=== PATIENT | male | born 1945 | race Caucasian/White ===

== ENCOUNTER 2019-07-16 10:51 | Emergency (ER) | payer MEDICARE, SELFPAY ==
--- NOTE | ~2019-07-16 | XR_ITS ---
EXAMINATION: XR chest 2V EXAM DATE: 07/16/2019 11:48 INDICATION: Cough and fever. TECHNIQUE: Frontal and lateral projections of the chest obtained and reviewed. Comparison is made to prior examination from 07/11/2007. FINDINGS: Small amount of right perihilar patchy airspace disease likely developing pneumonia. Left lung is clear. No pneumothorax or pleural effusion. Cardiomediastinal silhouette is normal. There are no osseous abnormalities identified. IMPRESSION: Developing right perihilar pneumonia. Reviewed, dictated and finalized at location B. CY CHECKER
--- NOTE | 2019-07-16 11:13 | ED.URI ---
HPI - URI/Sore Throat General Chief Complaint: Upper Respiratory Infection Stated Complaint: body aches Time Seen by Provider: 07/16/19 11:32 Source: patient and RN notes reviewed Mode of arrival: ambulatory Limitations: no limitations History of Present Illness HPI Narrative: 74 old male presents with concern for fever, body aches. Reports he woke up early this morning with the symptoms. Denies any intervention for the symptoms. Reports similar symptoms 2 years ago when he was diagnosed with pneumonia. MD elicited complaint: fever Pertinent past history: pneumonia Related Data Home Medications Medication Instructions Recorded Confirmed Centrum Silver Ultra Men's 07/16/19 aspirin [Adult Low Dose Aspirin] 81 mg PO DAILY 07/16/19 07/16/19 finasteride 5 mg PO DAILY 07/16/19 07/16/19 [id number] cap PO 07/16/19 [Krill Oil (Vulcan 3 and 6)] lisinopril 40 mg PO DAILY 07/16/19 07/16/19 lovastatin 07/16/19 metformin 1,000 mg PO DAILY 07/16/19 07/16/19 metoprolol succinate 100 mg PO DAILY 07/16/19 07/16/19 Allergies Allergy/AdvReac Type Severity Reaction Status Date / Time chlorpheniramine Allergy Unknown HALLUCINATE Verified 08/31/16 05:15 D phenylephrine Allergy Unknown HALLUCINATE Verified 08/31/16 05:15 D Review of Systems Review of Systems: Narrative: CONSTITUTIONAL: Reports malaise, chills, sweats, fever. EYES: Denies visual changes, redness, or discharge. ENT: Denies rhinorrhea, congestion, sinus pain, otalgia and sore throat. CARDIOVASCULAR: Denies chest pain, palpitations, or edema. RESPIRATORY: Denies cough or dyspnea. GASTROINTESTINAL: Denies abdominal pain, nausea, vomiting, diarrhea SKIN: Denies rash or itching. MUSCULOSKELETAL: Reports myalgia. NEUROLOGIC: Denies headache. All systems reviewed & are unremarkable except as noted in HPI and below PMFSH Family History Family History (Updated 07/18/17 @ 15:57 by DOCTOR UNKNOWN) Father Diabetes mellitus Hypertension Patient's father is Family history of cardiovascular disease Mother Hypertension Patient's mother is , Onset Age: 76 Family history of cardiovascular disease Grandparent Hypertension Social History Social History Alcohol intake: never Comments At time of signature, agree with nursing past medical, surgical, social and family history. There is no relevant family history pertinent to the presenting complaint Exam Narrative: Exam Narrative: GENERAL: Well-appearing, well-nourished, and in no acute distress. HEAD: Normocephalic EYES: PERRLA, conjunctivae clear ENT: Nares clear, turbinates erythematous, no discharge. Mucous membranes moist. TM pearly pino with dull light reflex bilaterally; no tragal tenderness. Oropharynx not erythematous without lesions. Tonsils not enlarged and without exudate, no drooling, no hoarseness, no trismus. NECK: Supple. CHEST: Clear to auscultation, breath diminished in the right lung. No wheezing, rhonchi, rales, or stridor. No respiratory distress, speaks in full sentences. HEART: Regular rate and rhythm. SKIN: Warm, dry, no rash. NEURO: Alert and oriented x3. PSYCH: Normal mood and affect Course Course Emergency Course: Patient is aware of diagnosis, understands and agrees to treatment plan. Anticipatory guidance given. Patient agrees to follow-up as directed and is aware of reasons to seek care at the emergency department. Portions of this record may have been created with voice recognition software Vital Signs Vital signs: Reviewed. Patient has current diagnosis of hypertension. MDM - URI/Sore Throat MDM Narrative Medical decision making narrative: Differential diagnosis considered: Strep pharyngitis, allergic rhinitis, upper respiratory tract infection, sinusitis, rhinosinusitis, nasopharyngitis. viral pharyngitis, otitis media, otitis externa, pneumonia, bronchitis, viral cough syndrome, viral syndrome, and influenza. Exam findings sh
[2019-07-16 11:20] VITALS: BP 175/71; PULSE 99; RESP 20; TEMP 38.4; O2SAT 100
== END 2019-07-16 12:07 | disposition home or self-care (01) ==
PROVIDERS: Emergency Provider Nurse Practitioner; PCP Family Medicine
DX: R50.9 Fever, unspecified (principal); R52 Pain, unspecified; J18.9 Pneumonia, unspecified organism; E78.00 Pure hypercholesterolemia, unspecified; I10 Essential (primary) hypertension; N40.0 Benign prostatic hyperplasia without lower urinary tract symptoms; E11.9 Type 2 diabetes mellitus without complications
CPT/HCPCS: 71046; 87804; 99213; G0463

== ENCOUNTER 2020-05-03 16:17 | Emergency (ER) | payer MEDICARE, SELFPAY ==
--- NOTE | ~2020-05-03 | XR_ITS ---
EXAMINATION: XR chest 2V 05/03/2020 16:32 INDICATION: Cough and fever PROCEDURE: 2 view chest COMPARISON: 07/16/2019 FINDINGS: The lungs are clear. The cardiomediastinal silhouette is within normal limits. There are no pleural effusions. There is no pneumothorax suspected. IMPRESSION: 1: NO ACUTE CARDIOPULMONARY DISEASE. Reviewed, dictated and finalized at location B. UP GUIDER OPERATOR
[2020-05-03 16:24] VITALS: BP 172/86; PULSE 98; RESP 18; TEMP 37.8; O2SAT 97
--- NOTE | 2020-05-03 16:38 | ED.URI ---
HPI - URI/Sore Throat General Chief Complaint: Upper Respiratory Infection Stated Complaint: dry cough/congestion Source: patient and RN notes reviewed Mode of arrival: ambulatory History of Present Illness HPI Narrative: The patient, a non-smoker/nondrinker on several routine meds, presents with fever. Patient states he has a shorter 1 to 2-day history of fever to 100 associated with scant cough, myalgias and headache. No known sick contacts, vomiting/diarrhea/dehydration, CP, rash, S OB, wheezing/sneezing, calf pain/ edema. Patient advised to get Covid test tomorrow and self quarantine Related Data Home Medications Medication Instructions Recorded Confirmed Centrum Silver Ultra Men's 07/16/19 03/23/20 aspirin [Adult Low Dose Aspirin] 81 mg PO DAILY 07/16/19 05/03/20 Allergies Allergy/AdvReac Type Severity Reaction Status Date / Time chlorpheniramine Allergy Unknown HALLUCINATE Verified 11/19/19 10:20 D phenylephrine Allergy Unknown HALLUCINATE Verified 11/19/19 10:20 D Review of Systems Review of Systems: Narrative: General/Constitutional: No weight loss, REPORTS fever Eyes: N0: Redness,discharge Ears/Nose/Throat: No: Epistaxis,ear discharge Respiratory: Denies: Hemoptysis Gastrointestinal: No Vomiting, Bleeding-rectal Skin: No Lumps, eruption Neurologic: No Focal Weakness,Sz Hematologic: Denies: Petechiae/Purpura Psychiatric: No: Suicida ideationl All Other Systems: Reviewed and Negative [facility] Past Medical History Medical History (Updated 05/03/20 @ 17:13 by José Antonio Ordoñez MD) CKD (chronic kidney disease) stage 3, GFR 30-59 ml/min Mixed hyperlipidemia Obesity (BMI 30.0-34.9) Family History Family History Father Diabetes mellitus Hypertension Patient's father is Family history of cardiovascular disease Mother Hypertension Patient's mother is , Onset Age: 76 Family history of cardiovascular disease Grandparent Hypertension Social History Social History Smoking status: Never smoker Alcohol intake: never Gender identity (if verbalized by the patient): Male Comments At time of signature, agree with nursing past medical, surgical, social and family history. There is no relevant family history pertinent to the presenting complaint Exam Narrative: Exam Narrative: General Appearance: Well appearing, Well nourished EYE: PERRLA, Conjunctiva clear Nose: Rhinorrhea, Mucousal erythema Mouth/Throat: MM moist, Uvula midline, Supple, Respiratory: No respiratory distress, BS equal-decreased at bases, CTA Cardiovascular: RRR, No JVD Musculoskeletal: Non tender, Normal strength Skin: Warm, Dry Neurological: A&O x3, CN II-XII intact Psychiatric: Normal mood, Normal affect The patient agrees, in light of health emergency- in my medical judgement, only a personal chat was preferable to fully undress & examine the patient exhibiting potential COVID symptoms, in order to limit risk of infection. Course Vital Signs Vital signs: Vital Signs Temperature 100.1 F H 05/03/20 16:24 Pulse Rate 98 05/03/20 16:24 Respiratory Rate 18 05/03/20 16:24 Blood Pressure 172/86 H 05/03/20 16:24 Pulse Oximetry 97 05/03/20 16:24 Temperature 100.1 F H 05/03/20 16:24 Pulse Rate 98 05/03/20 16:24 Respiratory Rate 18 05/03/20 16:24 Blood Pressure 172/86 H 05/03/20 16:24 Pulse Oximetry 97 05/03/20 16:24 MDM - URI/Sore Throat Lab Data Labs: Influenza A Screen Negative Reference Range: Negative Influenza B Screen Negative Reference Range: Negative Discharge Plan Discharge Clinical Impression: Influenza-like illness Fever Qualifiers: Fever type: unspecified Qualified Code(s): R5
== END 2020-05-03 17:02 | disposition home or self-care (01) ==
PROVIDERS: Emergency Provider Emergency Medicine
DX: J11.1 Influenza due to unidentified influenza virus with other respiratory manifestations (principal); R50.9 Fever, unspecified; Z20.828 Contact with and (suspected) exposure to other viral communicable diseases; E78.2 Mixed hyperlipidemia; E66.9 Obesity, unspecified; Z68.31 Body mass index [BMI] 31.0-31.9, adult; I12.9 Hypertensive chronic kidney disease with stage 1 through stage 4 chronic kidney disease, or unspecified chronic kidney disease; E11.22 Type 2 diabetes mellitus with diabetic chronic kidney disease; N18.30 Chronic kidney disease, stage 3 unspecified; N40.0 Benign prostatic hyperplasia without lower urinary tract symptoms; E78.00 Pure hypercholesterolemia, unspecified
CPT/HCPCS: 71046; 87804; 99213; G0463

== ENCOUNTER 2020-05-04 10:41 | Outpatient (NON) | payer MEDICARE, SELFPAY ==
[2020-05-04 23:27] LABS: SARS-CoV-2 RNA PCR Positive
== END 2020-05-04 10:42 ==
LOC: ANHCOVIDDT 10:44
PROVIDERS: Visit Provider Emergency Medicine
DX: J11.1 Influenza due to unidentified influenza virus with other respiratory manifestations (principal); Z20.828 Contact with and (suspected) exposure to other viral communicable diseases
CPT/HCPCS: 87635; C9803; U0003

== ENCOUNTER 2020-05-16 19:39 | Emergency (ER) | payer MEDICARE, SELFPAY ==
--- NOTE | ~2020-05-16 | XR_ITS ---
EXAMINATION: XR chest 1V portable EXAM DATE: 05/16/2020 20:30 INDICATION: Worsening shortness of breath. COVID 19 positive. TECHNIQUE: Portable AP frontal chest x-ray was obtained. Comparison is made to prior examination from 05/03/2020. FINDINGS: Some scattered small ill-defined opacities without dense confluent consolidation. No pneumo thorax or pleural effusion. The cardiomediastinal silhouette is prominent but magnified on this AP te chnique. There are bony degenerative changes. IMPRESSION: Scattered small ill-defined lung opacities, probably COVID-19. Reviewed, dictated and finalized at location A. KFEED MILLER
--- NOTE | ~2020-05-16 | CT_ITS ---
EXAMINATION: CT abdomen pelvis w con EXAM DATE: 05/16/2020 23:10 INDICATION: Abdominal pain. COVID-19. TECHNIQUE: Spiral CT of the abdomen and pelvis was performed following intravenous injection of 100 m L Omnipaque 350. Axial, coronal and sagittal images were reviewed. The dose-length product (DLP) fo r this examination was 894.50 mGy-cm. The exposure was tailored according to patient size (auto mA e xposure control), and iterative reconstruction (ASIR) was used as additional dose reduction technique . Correlation is made to prior chest x-rays earlier same date and 05/03/2020. FINDINGS: The liver, spleen, adrenal glands and pancreas are unremarkable. There are gallstones with in an otherwise unremarkable gallbladder. No evidence of obstructive biliary disease. Portal and sp lenic veins are patent. Kidneys enhance symmetrically. There is no hydronephrosis. There are severa l right calyceal stones up to 2.5 mm in size. There is mild to moderate prostatomegaly. There is a s tone in the dependent aspect of the bladder measuring 1.6 cm. There our small to moderate right, and small left inguinal fat-containing hernias. Evidence of prior left inguinal hernia repair. There is no retroperitoneal or pelvic lymphadenopathy. There is mild scattered arteriosclerotic disease. The appendix is normal. There is small to moderate-sized gastroesophageal hiatal hernia. There is e xpected amount of colonic stool. No free intraperitoneal gas. The heart is normal in size. There are no pericardial or pleural effusions. Scattered bibasilar groundglass opacities consistent with COVID-19 pneumonia. There are bony degenerative changes. No osteoblastic or osteolytic lesions ident ified. IMPRESSION: 1. Scattered bibasilar groundglass opacities consistent with COVID-19 pneumonia. 2. Small right nephrolithiasis. Bladder stone. 3. Prostatomegaly. 4. Cholelithiasis. 5. Small to moderate hiatal hernia. Reviewed, dictated and finalized at location A. [place] IMPRESSION: 1. Scattered bibasilar groundglass opacities consistent with COVID-19 pneumoni a. 2. Small right nephrolithiasis. Bladder stone. 3. Prostatomegaly. 4. Cholelithiasis. 5. Small to moderate hiatal hernia.
[2020-05-16 19:44] VITALS: BP 150/76; PULSE 109; RESP 16; TEMP 36.3; O2SAT 96
--- NOTE | 2020-05-16 20:19 | ECG_ITS ---
Measurements Intervals [place] Rate: 100 P: 35 IL: 160 QRS: 14 QRSD: 85 T: -8 QT: 343 QTc: 443 Interpretive Statements SINUS TACHYCARDIA BORDERLINE ST-T WAVE ABNORMALITY- INFERIOR LEADS BASELINE ARTIFACT- I, II, III BORDERLINE ECG Electronically Signed On 05-17-2020 7:11:34 KEYSEATING MACHINE SET UP OPERATOR by Yonathan Levy D.O.
--- NOTE | 2020-05-16 20:20 | ED.GENADULT ---
HPI - General Adult General Chief complaint: Shortness of Breath/Dyspnea Stated complaint: covid + 05/05/2020; weakness, decrease appetite Time Seen by Provider: 05/16/20 19:49 Source: RN notes reviewed History of Present Illness HPI narrative: Patient presents to emergency department from home for weakness. Patient states he was diagnosed with Covid on 05 May. He states that today he felt weak as well as some increased shortness of breath. States he was able to eat but had less of an appetite he states he also was having a low-grade fever at home but took Tylenol just prior to arrival he denies any chest pain abdominal pain vomiting diarrhea or any other symptoms Related Data Home Medications Medication Instructions Recorded Confirmed Centrum Silver Ultra Men's 07/16/19 03/23/20 aspirin [Adult Low Dose Aspirin] 81 mg PO DAILY 07/16/19 05/03/20 Allergies Allergy/AdvReac Type Severity Reaction Status Date / Time chlorpheniramine AdvReac Unknown HALLUCINATE Verified 05/16/20 19:48 D phenylephrine AdvReac Unknown HALLUCINATE Verified 05/16/20 19:48 D Review of Systems Review of Systems: Narrative: Gen.: Denies fevers or chills Eyes: Denies eye pain or visual change ENT: Denies congestion Respiratory: Reports shortness of breath CV: Denies chest pain or palpitations GI: Denies abdominal pain nausea, emesis or diarrhea reports decreased appetite denies burning, urgency, frequency or hematuria Musculoskeletal: Denies back pain or muscle pain Neuro: Denies numbness, tingling, weakness or focal weakness Skin: Denies rash Except as documented, all other systems reviewed and negative [facility] Past Medical History Medical History CKD (chronic kidney disease) stage 3, GFR 30-59 ml/min Mixed hyperlipidemia Obesity (BMI 30.0-34.9) Family History Family History Father Diabetes mellitus Hypertension Patient's father is Family history of cardiovascular disease Mother Hypertension Patient's mother is , Onset Age: 76 Family history of cardiovascular disease Grandparent Hypertension Social History Social History Smoking status: Never smoker Alcohol intake: never Gender identity (if verbalized by the patient): Male Exam Narrative: Exam Narrative: APPEARANCE: No acute distress, nontoxic, resting in bed EYES: EOMI HEENT: Normocephalic, atraumatic, OMM RESPIRATORY: No respiratory distress Clear to auscultation bilaterally with no rhonchi wheezing or rales. CARDIOVASCULAR: Regular rate and rhythm without murmurs rubs or gallops. ABDOMINAL: Soft, nontender, nondistended, no rebound or guarding MUSCULOSKELETAl: Moves all extremities. No clubbing, cyanosis or edema. NEURO: Awake and alert. Following commands, speech normal, no focal deficits SKIN:: Warm, dry. No rashes lesions or abrasions PSYCHIATRIC: Normal affect/mood, Course Course Emergency Course: Patient states he is feeling better this time ready for discharge Anais with Dr. Wilson presentation work-up discussed results of work-up agrees with plan for discharge with follow-up as an outpatient CT scan I did reevaluate the patient patient's abdomen remained soft and nontender Discussed with patient results of workup and diagnosis. Discussed need for follow-up with primary care, proper use of medication, and reasons to return to the emergency department. Patient understands and agrees to current treatment plan Vital Signs Vital signs: Vital Signs Temperature 97.4 F L 05/16/20 19:44 Pulse Rate 109 H 05/16/20 19:44 Respiratory Rate 16 05/16/20 19:44 Blood Pressure 150/76 H 05/16/20 19:44 Pulse Oximetry 96 05/16/20 19:44 Temperature 97.4 F L 05/16/20 19:44 Pulse Rate 79 05/16/20 21:49 Respiratory Rate 20 05/16/20 21:49 Blood Press
[2020-05-16] MEDS: SODIUM CHLORIDE 0.9% IV 1,000 ML 999 ML IV CONT (20:44)
[2020-05-16 20:47] LABS: Eosinophils Percent Auto 0.3 % (0-4.4); Hematocrit 32.9 % (42.0-52.0); Hemoglobin 11.4 g/dL (14.0-18.0); Immature Granulocyte Absolute 0.01 K/mm3 (0.00-0.031); Immature Granulocyte Percent A 0.3 % (0-0.5); Lymphocytes Absolute Auto 0.49 K/mm3 (0.9-3.2); Lymphocytes Percent Auto 13.6 % (18.3-44.2); Mean Corpuscular HGB Conc 34.7 g/dl (32-36); Mean Corpuscular Hemoglobin 33.5 pg (26-34); Mean Corpuscular Volume 96.8 fl (80-100); Mean Platelet Volume 9.8 fl (7.4-10.4); Monocytes Absolute Auto 0.2 K/mm3 (0.1-0.6); Monocytes Percent Auto 6.4 % (2.6-8.5); Neutrophils Absolute Auto 2.9 K/mm3 (1.3-6.7); Neutrophils Percent Auto 79.4 % (45.5-73.1); Platelet Count Result 137 k/mm3 (150-375); Red Cell Distribution Width 13.6 % (11.5-14.5); White Blood Count 3.6 K/mm3 (4.5-10.0)
[2020-05-16 20:59] LABS: Alanine Aminotransferase 91 U/L (4-50); Albumin Level 3.8 g/dL (3.5-5.1); Alkaline Phosphatase 109 U/L (38-126); Anion Gap 11 mmol/L (8-16); Aspartate Amino Transferase 123 U/L (17-59); Bilirubin,Total 0.8 mg/dL (0.2-1.3); Blood Urea Nitrogen 38 mg/dL (9-20); Calcium 8.6 mg/dL (8.4-10.2); Carbon Dioxide 17 mmol/L (22-30); Chloride 110 mmol/L (98-107); Estimated CRCL calculation 49 ml/min; Estimated Glomerular Filt Rate 50; Glucose 130 mg/dL (75-110); Lipase 327 U/L (23-300); Sodium 138 mmol/L (137-145)
[2020-05-16 21:49] VITALS: PULSE 79; RESP 20; O2SAT 96
[2020-05-16 22:28] LABS: Add Urine Microscopic? YES; Appearance Urine Clear (Clear); Bilirubin Urine Negative (Negative); Blood Urine Negative (Negative); Color Urine Yellow (Yellow); Glucose Urine UA Negative (Negative); Hyaline Casts Urine 20-29 /lpf; Ketones Urine Negative (Negative); Leukocyte Esterase Ur Trace LEU/UL (Negative); Mucus Urine Few /lpf; Nitrate Urine Positive (Negative); Protein Urine 1+ mg/dL (Negative); Specific Grav Ur 1.021 (1.001-1.035); Squamous Epithelial Cell Urine Rare /hpf (Few); Uric Acid Crystals Urine Present /hpf; Urobilinogen Urine Negative mg/dL (<2.0); WBC Urine 16-20 /hpf
[2020-05-16 23:48] VITALS: BP 149/100; PULSE 94; RESP 16; O2SAT 98
[2020-05-16 23:58] VITALS: BP 151/82; PULSE 82; RESP 16; O2SAT 97
== END 2020-05-17 00:02 | disposition home or self-care (01) ==
PROVIDERS: Emergency Provider Emergency Medicine; PCP Family Medicine
DX: U07.1 COVID-19 (principal); N39.0 Urinary tract infection, site not specified; N28.9 Disorder of kidney and ureter, unspecified; N18.30 Chronic kidney disease, stage 3 unspecified; E78.2 Mixed hyperlipidemia; E66.9 Obesity, unspecified; Z68.30 Body mass index [BMI] 30.0-30.9, adult; R91.8 Other nonspecific abnormal finding of lung field; N21.0 Calculus in bladder; N20.0 Calculus of kidney; N40.0 Benign prostatic hyperplasia without lower urinary tract symptoms; K80.20 Calculus of gallbladder without cholecystitis without obstruction; K44.9 Diaphragmatic hernia without obstruction or gangrene; R00.0 Tachycardia, unspecified; R94.31 Abnormal electrocardiogram [ECG] [EKG]
CPT/HCPCS: 36415; 71045; 74177; 80053; 81001; 83690; 85025; 87086; 87088; 93005; 96361; 96365; 99284; J0696; J7030; Q9967

== ENCOUNTER 2020-06-22 08:55 | Outpatient (CLI) | payer MEDICARE, SELFPAY ==
[2020-06-22 09:29] LABS: Alanine Aminotransferase 31 U/L (4-50); Albumin Level 4.4 g/dL (3.5-5.1); Alkaline Phosphatase 66 U/L (38-126); Amylase 61 U/L (30-110); Aspartate Amino Transferase 40 U/L (17-59); Bilirubin,Total 0.8 mg/dL (0.2-1.3); Lipase 100 U/L (23-300)
[2020-06-22 09:32] LABS: Partial Thromboplastin Time 29.7 SECONDS (22.3-36.8)
== END 2020-06-22 08:56 | disposition home or self-care (01) ==
LOC: ANHSURGERY 08:58
PROVIDERS: Anesthesiology; Family Provider Family Medicine; PCP Family Medicine; Visit Provider Surgery
DX: K80.20 Calculus of gallbladder without cholecystitis without obstruction (principal); N18.30 Chronic kidney disease, stage 3 unspecified; Z01.818 Encounter for other preprocedural examination
CPT/HCPCS: 36415; 80076; 82150; 83690; 85610; 85730

== ENCOUNTER 2020-07-01 00:55 | Day surgery (SDC) | payer MEDICARE, SELFPAY ==
--- NOTE | 2020-06-30 07:29 | PM.HPGS ---
History of Present Illness History of Present Illness Consent: Risks, benefits, and alternatives have been discussed and questions answered. Patient agrees to proceed with procedure. Chief complaint: Cholelithiasis Narrative: Gerald Carmen is a 74 year old male recent presented to the ER with symptoms of cholecystitis is scheduled for cholecystectomy. During evaluation CT of the abdomen pelvis also showed a 1.6 cm bladder calculus. After discussion of options he elected for simultaneous cholecystectomy and extraction of bladder stone Review of Systems Cardiovascular: Cardiovascular: Denies chest pain, Denies lightheadedness, Denies palpitations and Denies dyspnea Respiratory: Respiratory: Denies dyspnea Gastrointestinal: Gastrointestinal: Denies diarrhea, Denies nausea and Denies vomiting Genitourinary: Genitourinary: Denies hematuria and Denies dysuria Endocrine: Endocrine: Denies palpitations PMFSH Past Medical History Medical History Agent orange exposure CKD (chronic kidney disease) stage 3, GFR 30-59 ml/min Elevated liver enzymes Gallstone HTN (hypertension) Mixed hyperlipidemia Obesity (BMI 30.0-34.9) Type 2 diabetes mellitus with hyperglycemia Surgical History Surgical History History of bladder surgery History of inguinal hernia repair RIH repair Family History Family History Father Diabetes mellitus Hypertension Patient's father is Family history of cardiovascular disease Heart disease Mother Hypertension Patient's mother is , Onset Age: 76 Family history of cardiovascular disease Cancer of spine Grandparent Hypertension Social History Social History Smoking status: Former smoker Tobacco type: cigars Additional smoking assessment comments: STATES 1-2 CIGARS/DAILY/6YRS - QUIT 1974 Alcohol intake: never Substance use: never Substance use type: does not use Gender identity (if verbalized by the patient): Male Spiritual care concerns: No Meds Home Medications and Allergies Home Medications Medication Instructions Recorded Confirmed Type Centrum Silver Ultra Men's 1 tablet DAILY 07/16/19 06/21/20 History aspirin [Adult Low Dose Aspirin] 81 mg PO DAILY 07/16/19 06/21/20 History cholecalciferol (vitamin D3) 25 mcg PO DAILY 06/21/20 06/21/20 History finasteride 5 mg PO HS 06/21/20 06/21/20 History zinc 50 mg PO DAILY 06/21/20 06/21/20 History lisinopril 20 mg tablet 20 mg PO BID #180 tablet 06/23/20 06/23/20 Rx lovastatin 10 mg tablet 10 mg PO HS #90 tablet 06/23/20 06/23/20 Rx metformin 500 mg tablet 500 mg PO BID #180 tablet 06/23/20 06/23/20 Rx metoprolol succinate 50 mg 50 mg PO BID #90 tablet 06/23/20 06/23/20 Rx tablet,extended release 24 hr Allergies Allergy/AdvReac Type Severity Reaction Status Date / Time chlorpheniramine AdvReac Unknown HALLUCINATE Verified 06/21/20 13:03 D phenylephrine AdvReac Unknown HALLUCINATE Verified 06/21/20 13:03 D Exam Const: General: no acute distress Resp: Effort & Inspection: normal respiratory effort GI: Inspection: non-distended GI Palp: No abdominal tenderness and No Guarding due to palpation present (GI) Auscultation: normal bowel sounds Assessment and Plan Assessment and plan (1) Bladder stone: Code(s): N21.0 - Calculus in bladder Status: Acute Assessment and Plan: Cystoscopy with laser lithotripsy of bladder stone extraction
--- NOTE | 2020-06-30 13:37 | WPDANESEPPF ---
Anes - Initial Pre Proc Eval Procedure: Operation Date: 07/01/20 07:30 Proposed Procedures p Laparoscopic Cholecystectomy, Possible Intraoperative Cholangiogram, Possible Open - Ran Rosa MD s Cystoscopy With Bladder Stone Extraction - Stanley Goldberg MD s Holmium Laser Procedure - Stanley Goldberg MD Date/Time: 06/30/20 13:37 Surgeon: Ran Rosa MD Pre Op Diagnosis: Cholelithiasis Patient Data Age: 74 Gender: M Height: 5 ft 10 in Weight: 95 kg Allergies Allergy/AdvReac Type Severity Reaction Status Date / Time chlorpheniramine AdvReac Unknown HALLUCINATE Verified 07/01/20 06:22 D phenylephrine AdvReac Unknown HALLUCINATE Verified 07/01/20 06:22 D Home Medications Medication Instructions Recorded Confirmed Type Centrum Silver Ultra Men's 1 tablet DAILY 07/16/19 07/01/20 History aspirin [Adult Low Dose Aspirin] 81 mg PO DAILY 07/16/19 07/01/20 History cholecalciferol (vitamin D3) 25 mcg PO DAILY 06/21/20 07/01/20 History finasteride 5 mg PO HS 06/21/20 07/01/20 History zinc 50 mg PO DAILY 06/21/20 07/01/20 History lisinopril 20 mg tablet 20 mg PO BID #180 tablet 06/23/20 07/01/20 Rx lovastatin 10 mg tablet 10 mg PO HS #90 tablet 06/23/20 07/01/20 Rx metformin 500 mg tablet 500 mg PO BID #180 tablet 06/23/20 07/01/20 Rx metoprolol succinate 50 mg 50 mg PO BID #90 tablet 06/23/20 07/01/20 Rx tablet,extended release 24 hr Patient hx anesthesia problems: none Family hx anesthesia problems: none PMFSH Past Medical History Medical History Agent orange exposure CKD (chronic kidney disease) stage 3, GFR 30-59 ml/min Elevated liver enzymes Gallstone HTN (hypertension) Mixed hyperlipidemia Obesity (BMI 30.0-34.9) Type 2 diabetes mellitus with hyperglycemia Surgical History Surgical History History of bladder surgery History of inguinal hernia repair RIH repair Family History Family History Father Diabetes mellitus Hypertension Patient's father is Family history of cardiovascular disease Heart disease Mother Hypertension Patient's mother is , Onset Age: 76 Family history of cardiovascular disease Cancer of spine Grandparent Hypertension Social History Social History Smoking status: Former smoker Tobacco type: cigars Additional smoking assessment comments: STATES 1-2 CIGARS/DAILY/6YRS - QUIT 1974 Alcohol intake: never Substance use: never Substance use type: does not use Living arrangements: with family Gender identity (if verbalized by the patient): Male Spiritual care concerns: No Anes - Eval Final PreProcedure Day of Procedure 06/30/20 13:37 Patient weight: overweight Heart: regular rate and rhythm Lungs: clear to auscultation Airway: Mallampati scale class III Neurological: alert and oriented Last oral intake: >/= 8 hours ASA classification: III Emergent: no Anesthetic plan: proceed Anesthesia type and monitoring: general ETT and standard monitoring Informed Consent: The patient's anesthetic plan and its attendant risks and benefits were discussed with the patient/family/POA. Questions were solicited and answers provided to the satisfaction of the patient/family/POA.
[2020-07-01] VITALS (9 sets, daily range): BP systolic 134–185; BP diastolic 59–91; PULSE 61–71; RESP 11–20; TEMP 36.1–36.5; O2SAT 98–100; BMI 29.1
[2020-07-01] MEDS: ACETAMINOPHEN 500 MG TABLET 1000 MG PO (06:58)
[2020-07-01] MEDS: LACTATED RINGERS 1,000 ML 30 ML IV CONT ×2 (06:58→11:00)
[2020-07-01] MEDS: KETOROLAC 15 MG/ML VIAL (*BKC) IV PUSH (06:58)
--- NOTE | 2020-07-01 07:01 | WPDHPUPDATE1 ---
History and Physical Update Update Date/Time: 07/01/20 07:01 History and Physical has been reviewed, including an updated exam of the patient. There are NO changes in the patient's condition. Risks, benefits, and alternatives have been discussed and questions answered. Patient agrees to proceed with procedure.
[2020-07-01 07:03] LABS: Glucose Point of Care 152 (65-105)
--- NOTE | 2020-07-01 07:08 | WPDHPUPDATE1 ---
History and Physical Update Update Date/Time: 07/01/20 07:08 History and Physical has been reviewed, including an updated exam of the patient. There are NO changes in the patient's condition. Risks, benefits, and alternatives have been discussed and questions answered. Patient agrees to proceed with procedure.
[2020-07-01] MEDS: ceFAZolin 2 GM/D5W 50 ML 2 GM/50 ML BAG IVPB (07:32)
--- NOTE | 2020-07-01 07:43 | SUR.PREOP ---
0720; DR BABIN NOTIFIED OF HIGH BP
[2020-07-01] MEDS: BUPIVACAINE/EPINEPHRINE 0.5% 10 ML VIAL 30 ML INFILTRATE (08:17)
--- NOTE | 2020-07-01 10:31 | PM.PROC ---
Procedure Note - Detailed Date of procedure: 07/01/20 Pre-op diagnosis: Cholelithiasis Chronic Cholecystitis with Cholelithiasis Procedure performed: Laparoscopic Cholecystectomy Description of procedure: Patient was seen preoperatively in the holding area and risks, benefits and alternatives confirmed. Patient was taken to the operating room and general anesthesia was induced. A time out was then preformed with the surgery team confirming patient and site of surgery. The abdomen was prepped and draped in the usual sterile fashion. Incision was made just below the umbilicus with an 11 blade knife. I placed 2 stay sutures of O- Vicryl on either side of the mid-line fascia beneath the umbilicus and was then able to slide in the Herrera cannula through the fascial defect into the peritoneum. First under low flow and then under high flow the abdomen was insufflated with carbon dioxide never exceeding a pressure of 14. Three 5 mm trocars were then introduced under direct vision. The following trocars were introduced under direct vision: a 5 mm in the epigastrium and two 5 mm trocars along the right costal margin laterally in the subcostal area. There was significant omental adhesions to the anterior inferior edge of the right lobe of the liver completely covering the gallbladder. This was carefully taken down with cautery on the L hook and the gallbladder was uncovered. The gallbladder appeared to be soft and I was it was easy to grasp with the instruments that we had. There were no significant adhesions of the omentum to the gallbladder. I then carefully used the L-shaped cautery and the [place] dissector to dissect out the triangle of Calot. With careful dissection we found what appeared to be the somewhat looped hepatic artery with the cystic artery coming off of it. However even with careful dissection I did not find the cystic duct. There were several very small tubular structures that I a cut with the cautery which I believed were probably lymphatics. However 1 of them must of been the cystic duct. I did get a small hole in the back wall the gallbladder while we were dissecting it along its lateral edge and we had some draining bile however I never saw bile draining from anything on the gallbladder or the hepatic triangle which would suggest leakage from a transected cystic duct. At this point I decided to take the gallbladder down from the top. We carefully retracted the gallbladder and I dissected the gallbladder off its bed in the liver using blunt sharp dissection with L-shaped Bovie cautery the cautery on the spatula and kittner's. We never ran into any biliary duct structures as I came down the backside of the gallbladder. Upon completion of this the only tubular structure to the gallbladder was what we believed to be the anterior lying cystic artery coming off the larger vessel which I believed was the right hepatic artery. Two clips were placed on this approximately 1 near the gallbladder and then I carefully cut this only senior living and it appeared bleed blood and there was no bile in it. The cystic artery was then transected at this point. The gall bladder was then removed from the abdomen using an endobag . Following this we still had the 5 mm camera at one of the upper ports and there were 2 adhesions at the level of the umbilicus or slightly below it on the right side of the abdomen were taken down in order to prevent future possible episodes of small-bowel obstruction. These were omental adhesions to the anterior abdominal wall. These were noted when we 1st put the scope in to the patient as we were starting the case. We carefully checked and hemostasis was good at this area. We then turned the camera around and place it through the umbilical port and carefully irrigated underneath the gallbladder bed and carefully made sure that there was no leakage of bile or blood. No further cautery was needed on the gallbladder bed as it seemed to be
[2020-07-01 11:05] LABS: Glucose Point of Care 200 (65-105)
[2020-07-01] MEDS: LIDOCAINE HCL 2% GEL UROJET 10 ML PKG MUCOUS MEM (11:05)
--- NOTE | 2020-07-01 11:09 | PM.PROC ---
Procedure Note - Detailed Date of procedure: 07/01/20 Pre-op diagnosis: Cholelithiasis Post-op diagnosis: same Procedure performed: Cystoscopy, laser lithotripsy, bladder stone extraction. Description of procedure: The patient is brought to the operative suite where he was prepped and draped in a routine sterile fashion while in the dorsal lithotomy position after the uneventful induction of a general anesthetic. A 21F rigid cystoscope was placed in his bladder. He has no urethral strictures but moderate prostatic hyperplasia. He has a [no/small/moderate/large] median lobe enlargement with an estimated prostatic urethral length of approximately cm. He has [] bladder calculi measuring approximately []cm each . Using a 1000 micron holmium laser fiber laser these stones are fractured into smaller particles. The particles are evacuated through the cystoscope sheath using both the I2 [employer] evacuator and by direct extraction with the loop electrode. I'll plan to leave an indwelling Tolentino (due to history of post-op retention) for 3-days post-op. Placed an 18F Coude-catheter without difficultyThe patient was taken to the recovery room having tolerated the procedure well. Anesthesia: other Surgeon: Stanley Goldberg MD Estimated blood loss (mL): 0 Drains: Yes (18F Tolentino) Packing: No Pathology: yes (Bladder stone) Complications: No immediate complications Condition: stable Disposition: PACU
--- NOTE | 2020-07-01 13:31 | SUR.PHASEII ---
PATIENT INSTRUCTED RE: HOW TO EMPTY HARDY DRAIN. PATIENT KNOWS HOW TO EMPTY LOPEZ CATHETER FROM PREVIOUS OCCASION.
--- NOTE | 2020-07-01 13:44 | SUR.PHASEII ---
HARDY DRAINED 20 ML RED DRAINAGE.
== END 2020-07-01 13:25 | disposition home or self-care (01) ==
PROVIDERS: Urology; Family Provider Family Medicine; PCP Family Medicine; Visit Provider Surgery
PROC: 0FT44ZZ Resection of Gallbladder, Percutaneous Endoscopic Approach (ICD-10-PCS; CPT 47562; principal; 2020-07-01 07:30)
PROC: (CPT 52352; 2020-07-01 07:30)
PROC: (CPT 52318; 2020-07-01 07:30)
DX: K80.10 Calculus of gallbladder with chronic cholecystitis without obstruction (principal); D22.5 Melanocytic nevi of trunk; N21.0 Calculus in bladder; R74.01 Elevation of levels of liver transaminase levels; R94.5 Abnormal results of liver function studies; I12.9 Hypertensive chronic kidney disease with stage 1 through stage 4 chronic kidney disease, or unspecified chronic kidney disease; N18.30 Chronic kidney disease, stage 3 unspecified; E11.22 Type 2 diabetes mellitus with diabetic chronic kidney disease; E78.2 Mixed hyperlipidemia; E66.9 Obesity, unspecified; Z68.29 Body mass index [BMI] 29.0-29.9, adult; Z79.84 Long term (current) use of oral hypoglycemic drugs; Z79.82 Long term (current) use of aspirin; Z87.891 Personal history of nicotine dependence
CPT/HCPCS: 47562; 52318; 82365; 82948; 88300; 88304; 88305; A9270; C1769; J0690; J1100; J1170; J1885; J2250; J2405; J2704; J2710; J3010; J7120

== ENCOUNTER 2020-07-04 09:52 | Outpatient (CLI) | payer MEDICARE, SELFPAY ==
[2020-07-04 10:49] LABS: Basophils Percent Auto 0.3 % (0.2-1.2); Eosinophils Absolute Auto 0.2 K/mm3 (0-0.3); Eosinophils Percent Auto 3.1 % (0-4.4); Hematocrit 37.2 % (42.0-52.0); Hemoglobin 12.2 g/dL (14.0-18.0); Immature Granulocyte Absolute 0.01 K/mm3 (0.00-0.031); Immature Granulocyte Percent A 0.2 % (0-0.5); Immature Platelet Fraction Pct 2.8 % (0.9-11.2); Lymphocytes Percent Auto 19.9 % (18.3-44.2); Mean Corpuscular HGB Conc 32.8 g/dl (32-36); Mean Corpuscular Hemoglobin 32.4 pg (26-34); Mean Corpuscular Volume 98.7 fl (80-100); Mean Platelet Volume 10.1 fl (7.4-10.4); Monocytes Absolute Auto 0.6 K/mm3 (0.1-0.6); Monocytes Percent Auto 9.3 % (2.6-8.5); Neutrophils Absolute Auto 4.1 K/mm3 (1.3-6.7); Neutrophils Percent Auto 67.2 % (45.5-73.1); Platelet Count Result 144 k/mm3 (150-375); Red Blood Count 3.77 M/mm3 (4.6-6.20); Red Cell Distribution Width 14.6 % (11.5-14.5)
[2020-07-04 11:04] LABS: Alanine Aminotransferase 40 U/L (4-50); Albumin Level 4.2 g/dL (3.5-5.1); Alkaline Phosphatase 68 U/L (38-126); Anion Gap 4 mmol/L (8-16); Aspartate Amino Transferase 46 U/L (17-59); Blood Urea Nitrogen 20 mg/dL (9-20); Calcium 9.2 mg/dL (8.4-10.2); Carbon Dioxide 29 mmol/L (22-30); Chloride 106 mmol/L (98-107); Estimated Glomerular Filt Rate > 60; Glucose 119 mg/dL (75-110); Potassium 4.4 mmol/L (3.4-5.0); Sodium 139 mmol/L (137-145)
== END 2020-07-04 09:53 | disposition home or self-care (01) ==
LOC: ANHLAB 09:54
PROVIDERS: PCP Family Medicine; Visit Provider Surgery
DX: K80.20 Calculus of gallbladder without cholecystitis without obstruction (principal)
CPT/HCPCS: 36415; 80053; 85025; 85055

== ENCOUNTER 2021-05-03 10:07 | Emergency (ER) | payer MEDICARE, SELFPAY ==
--- NOTE | 2021-05-03 10:46 | ED.URI ---
HPI - URI/Sore Throat General Stated Complaint: bodyaches and pain,fatigue Time Seen by Provider: 05/03/21 10:46 Source: patient and RN notes reviewed History of Present Illness HPI Narrative: Patient is a 75-year-old male who presents the urgent care with complaints of cough and congestion. States symptoms started 1 week ago. [place] doing a lot of tractor work causing flareup in his history of bronchitis . Patient states that he has had the Covid vaccine and the booster. Patient is currently denying of any body aches or fatigue. Patient denies of any recent exposure to Covid. Denies of fever, chills, nausea, vomiting. States that he has been using [id number] cough drops without much improvement. No other acute complaints. No acute distress noted. Patient aware of the plan of care. Some parts of this dictation were generated by voice recognition software and may contain typographical and/or grammatical inaccuracies. Related Data Home Medications Medication Instructions Recorded Confirmed Centrum Silver Ultra Men's 1 tablet DAILY 07/16/19 12/26/20 aspirin [Adult Low Dose Aspirin] 81 mg PO DAILY 07/16/19 12/26/20 cholecalciferol (vitamin D3) 25 mcg PO DAILY 06/21/20 12/26/20 finasteride 5 mg PO HS 06/21/20 12/26/20 krill 300 mg-omega 3 90 mg-dha 24 1 cap PO DAILY 08/25/20 12/26/20 mg-epa 50 fu-[id number] capsule Allergies Allergy/AdvReac Type Severity Reaction Status Date / Time chlorpheniramine AdvReac Unknown HALLUCINATE Verified 05/03/21 11:03 D phenylephrine AdvReac Unknown HALLUCINATE Verified 05/03/21 11:03 D Review of Systems Review of Systems: CONSTITUTIONAL: Denies fever, chills, or sweats. EYES: Denies visual changes, redness, or discharge. ENT: Denies rhinorrhea, congestion, sore throat, or otalgia. CARDIOVASCULAR: Denies chest pain, palpitations, or edema. RESPIRATORY: Reports of chest congestion and a mild productive cough without dyspnea GASTROINTESTINAL: Denies abdominal pain, nausea, vomiting, or diarrhea. GENITOURINARY: Denies dysuria or hematuria. SKIN: Denies rash or itching. MUSCULOSKELETAL: Denies back pain, joint pain, or myalgia. NEUROLOGIC: Denies headache, numbness, or weakness. All other systems reviewed are negative, except as documented in HPI. [facility] Past Medical History Medical History Agent orange exposure CKD (chronic kidney disease) stage 3, GFR 30-59 ml/min Elevated liver enzymes Gallstone HTN (hypertension) Mixed hyperlipidemia Obesity (BMI 30.0-34.9) Type 2 diabetes mellitus with hyperglycemia Surgical History Surgical History History of bladder surgery History of inguinal hernia repair RIH repair Hx laparoscopic cholecystectomy Family History Family History Father Diabetes mellitus Hypertension Patient's father is Family history of cardiovascular disease Heart disease Mother Hypertension Patient's mother is , Onset Age: 76 Family history of cardiovascular disease Cancer of spine Grandparent Hypertension Social History Social History Tobacco type: cigars Additional smoking assessment comments: STATES 1-2 CIGARS/DAILY/6YRS - QUIT 1975 Alcohol intake: never Substance use: never Substance use type: does not use Gender identity (if verbalized by the patient): Male Spiritual care concerns: No Comments At the time of my signature, I reviewed and agree with the nursing past medical, surgical, social, and family history. There is no relevant family history pertinent to the patient complaint. Exam Narrative: GENERAL: This is a well-nourished, well-developed patient, in no apparent distress. HEAD: normocephalic, atraumatic. EYES: PERRL. Sclera susu
[2021-05-03 10:53] VITALS: BP 175/95; PULSE 99; RESP 20; TEMP 37.3; O2SAT 98
== END 2021-05-03 11:10 | disposition home or self-care (01) ==
PROVIDERS: Emergency Provider Nurse Practitioner Family; PCP Family Medicine
DX: J32.9 Chronic sinusitis, unspecified (principal); R05.9 Cough, unspecified; E11.22 Type 2 diabetes mellitus with diabetic chronic kidney disease; I12.9 Hypertensive chronic kidney disease with stage 1 through stage 4 chronic kidney disease, or unspecified chronic kidney disease; N18.30 Chronic kidney disease, stage 3 unspecified
CPT/HCPCS: 99213; G0463

== ENCOUNTER 2023-01-23 10:08 | Outpatient (CLI) | payer MEDICARE, SELFPAY ==
[2023-01-23 18:37] LABS: Basophils Percent Auto 0.5 % (0.2-1.2); Eosinophils Absolute Auto 0.1 K/mm3 (0-0.3); Eosinophils Percent Auto 2.3 % (0-4.4); Hematocrit 38.2 % (42.0-52.0); Hemoglobin 12.5 g/dL (14.0-18.0); Immature Granulocyte Absolute 0.01 K/mm3 (0.00-0.031); Immature Granulocyte Percent A 0.2 % (0-0.5); Lymphocytes Absolute Auto 1.59 K/mm3 (0.9-3.2); Lymphocytes Percent Auto 36.1 % (18.3-44.2); Mean Corpuscular HGB Conc 32.7 g/dl (32-36); Mean Corpuscular Hemoglobin 32.8 pg (26-34); Mean Corpuscular Volume 100.3 fl (80-100); Mean Platelet Volume 11.3 fl (7.4-10.4); Monocytes Absolute Auto 0.4 K/mm3 (0.1-0.6); Monocytes Percent Auto 9.1 % (2.6-8.5); Neutrophils Absolute Auto 2.3 K/mm3 (1.3-6.7); Neutrophils Percent Auto 51.8 % (45.5-73.1); Platelet Count Result 123 k/mm3 (150-375); Red Blood Count 3.81 M/mm3 (4.6-6.20); Red Cell Distribution Width 13.5 % (11.5-14.5); White Blood Count 4.4 K/mm3 (4.5-10.0)
[2023-01-23 19:17] LABS: Alanine Aminotransferase 32 U/L (6-50); Albumin Level 4.5 g/dL (3.5-5.1); Alkaline Phosphatase 59 U/L (38-126); Anion Gap 7 mmol/L (8-16); Aspartate Amino Transferase 41 U/L (17-59); Bilirubin,Total 0.6 mg/dL (0.2-1.3); Blood Urea Nitrogen 26 mg/dL (9-20); Calcium 9.3 mg/dL (8.4-10.2); Carbon Dioxide 25 mmol/L (22-30); Chloride 105 mmol/L (98-107); Cholesterol 141 mg/dL (0-200); Estimated Glomerular Filt Rate 46; Glucose 133 mg/dL (65-110); HDL Direct 25 mg/dL; Potassium 4.8 mmol/L (3.4-5.0); Sodium 137 mmol/L (137-145); Triglycerides 435 mg/dL (<150)
[2023-01-23 19:28] LABS: LDL Cholesterol Direct 43 mg/dL
[2023-01-23 20:01] LABS: Hemoglobin A1C 6.8 % (<5.7)
== END 2023-01-23 10:09 | disposition home or self-care (01) ==
PROVIDERS: PCP Family Medicine; Visit Provider Physician Assistant
DX: E11.65 Type 2 diabetes mellitus with hyperglycemia (principal); E66.3 Overweight; E78.2 Mixed hyperlipidemia; I10 Essential (primary) hypertension; D50.9 Iron deficiency anemia, unspecified; Z79.899 Other long term (current) drug therapy; Z79.4 Long term (current) use of insulin
CPT/HCPCS: 36415; 80053; 80061; 83036; 84443; 85025

== ENCOUNTER 2023-07-17 08:02 | Outpatient (CLI) | payer MEDICARE, SELFPAY ==
[2023-07-17 11:38] LABS: Basophils Percent Auto 0.5 % (0.2-1.2); Eosinophils Absolute Auto 0.1 K/mm3 (0-0.3); Eosinophils Percent Auto 3.4 % (0-4.4); Hematocrit 37.7 % (42.0-52.0); Immature Granulocyte Absolute 0.01 K/mm3 (0.00-0.031); Immature Granulocyte Percent A 0.2 % (0-0.5); Lymphocytes Absolute Auto 1.44 K/mm3 (0.9-3.2); Lymphocytes Percent Auto 35.5 % (18.3-44.2); Mean Corpuscular HGB Conc 31.8 g/dl (32-36); Mean Corpuscular Hemoglobin 32.5 pg (26-34); Mean Corpuscular Volume 102.2 fl (80-100); Mean Platelet Volume 11.2 fl (7.4-10.4); Monocytes Absolute Auto 0.4 K/mm3 (0.1-0.6); Monocytes Percent Auto 10.8 % (2.6-8.5); Neutrophils Percent Auto 49.6 % (45.5-73.1); Platelet Count Result 121 k/mm3 (150-375); Red Blood Count 3.69 M/mm3 (4.6-6.20); Red Cell Distribution Width 13.5 % (11.5-14.5); White Blood Count 4.1 K/mm3 (4.5-10.0)
[2023-07-17 12:24] LABS: Alanine Aminotransferase 27 U/L (6-50); Albumin Level 4.4 g/dL (3.5-5.1); Alkaline Phosphatase 59 U/L (38-126); Anion Gap 7 mmol/L (8-16); Aspartate Amino Transferase 57 U/L (17-59); Bilirubin,Total 0.6 mg/dL (0.2-1.3); Blood Urea Nitrogen 31 mg/dL (9-20); Calcium 9.5 mg/dL (8.4-10.2); Carbon Dioxide 26 mmol/L (22-30); Chloride 108 mmol/L (98-107); Cholesterol 127 mg/dL (0-200); Estimated Glomerular Filt Rate 49; Glucose 146 mg/dL (65-110); HDL Direct 22 mg/dL; Potassium 4.3 mmol/L (3.4-5.0); Sodium 141 mmol/L (137-145); Triglycerides 366 mg/dL (<150)
[2023-07-17 12:38] LABS: LDL Cholesterol Direct 40 mg/dL
[2023-07-17 14:15] LABS: Hemoglobin A1C 7.3 % (<5.7)
== END 2023-07-17 08:03 | disposition home or self-care (01) ==
PROVIDERS: PCP Family Medicine; Visit Provider Physician Assistant
DX: D50.9 Iron deficiency anemia, unspecified (principal); E66.3 Overweight; E11.65 Type 2 diabetes mellitus with hyperglycemia; E78.2 Mixed hyperlipidemia; Z79.899 Other long term (current) drug therapy; Z79.4 Long term (current) use of insulin
CPT/HCPCS: 36415; 80053; 80061; 83036; 84443; 85025

== ENCOUNTER 2024-08-07 08:15 | Outpatient (CLI) | payer MEDICARE, SELFPAY ==
--- OUTSIDE RECORDS SUMMARY | 2024-08-07 08:21 | XMS_ITS | Referral Summary ---
Author Organization [facility] Address [address] [place] [address] Phone Care Team Providers Care Promotional Marketing Analyst Name Role Phone Bucky Leal MD Primary Care Provider [phone] Encounters Date Type Department Care Team Description 05/29/2024 Telephone [facility] Hematology [address] [place] [address] Eladia Bello from Last 3 Months Allergies Active Allergy Reactions Criticality Noted Date Comments Acetaminophen Unknown 05/14/2013 Antihistamines - Alkylamine Unknown 05/14/20 13 Abl-Wel-Mk-Acetaminophen Unknown 05/14/2013 Ephedrine Analogues Unknown 05/14/2013 Opioids - Morphine Analogues Unknown 013 Medications finasteride (PROSCAR) 5 mg tablet 03/23/20 18 Active lisinopril (PRINIVIL,ZES TRIL) 20 mg tablet 2 tablets (40 mg total) 03/04 06/22 18 Active metFORMIN (GLUCOPHAGE) 500 mg tablet 03/23/20 18 Active metoprolol XL (TOPROL-XL) 50 mg 24 hr tablet 03/23/20 18 Active folic acid/multivit -min/lutein (CENTRUM SILVER ORAL) 05/15/2017Centrum silver, po solid TabletPOdailyCurrent Medication 05/15/20 17 Active aspirin 81 mg tablet 05/15/2017Aspir 81, po solid 81 mg Tablet, delayed release (enteric coated)POdailyCurrent Medication 05/15/20 17 Active fenofibrate (TRIGLIDE) 160 mg tablet 05/31/20 22 Active hydroCHLOROth iazide (HYDRODIURIL) 12.5 mg tablet 03/25/20 23 Active rosuvastatin (CRESTOR) 10 mg tablet 05/13/20 23 Active icosapent ethyL (VASCEPA) 1 gram capsule Take 2 capsules (2 g total) by mouth 2 (two) times a day Active Active Problems Problem Noted Date Diagnosed Date Monoclonal gammopathy of unknown significance Immunizations Immunization Administration Dates Next Due Influenza, Quadrivalent, Rec ombinant, Egg Free, Preservative Free, Intramuscular 03/27/2019 Influenza, Trivalent, High D ose, Split, Preservative Free, Intramuscular 03/06/2018 Influenza, Unspecified 05/15/2017,2015,05/17/2015,05/18,05/19/2013 Pfizer SARS-CoV-2 Monovalent Vaccination (12+ Yrs) PURPLE 04/19/2021,08/16/2020,07/26/2020 ZOSTER LIVE 05/15/2017,05/16/2016 Social History Tobacco Use Types Packs/Day Years Used Date Smoking Tobacco: Former Cigars Q uit: 1988 Smokeless Tobacco: Former Chew Alcohol Use Standard Drinks/Week Comments No 0 (1 standard drink = 0.6 oz pur e alcohol) AUDIT-C Answer Date Recorded Q1: How often do you have a drink containing alc ohol? Never 06/07/2021 Average Number of Drinks Not on file 022 Frequency of Binge Drinking Not on file 10/2021 Personal Safety Answer Date Recorded Getting School Help Needed Not on file 05/15 Sex and Gender Information Value Date Recorded Sex Assigned at Not on file Legal Sex Male 8:18 AM CDT Gender Identity Not on file Sexual Orientation Not on file Last Filed Vital Signs Vital Sign Reading Time Taken Comments Blood Pressure 174/82 06/11/2023 10:01 AM WHITTLING ROOM OPERATOR Pulse 76 06/11/2023 10:01 AM WHITTLING ROOM OPERATOR Temperature 36.4 C (97.5 F) 06/11/2023 10:01 AM WHITTLING ROOM OPERATOR Respiratory Rate 18 06/11/2023 10:01 AM WHITTLING ROOM OPERATOR Oxygen Saturation 97% 06/11/2023 10:01 AM WHITTLING ROOM OPERATOR Inhaled Oxygen Concentration - - Weight 98.4 kg (217 lb) 06/11/2023 10:01 AM WHITTLING ROOM OPERATOR Height 175.3 cm (5' 9 ) 06/11/2023 10:01 AM WHITTLING ROOM OPERATOR Body Mass Index 32.05 06/11/2023 10:01 AM WHITTLING ROOM OPERATOR Plan of Treatment Not on file Insurance MEDICARE [employer] [facility] MEDICARE [employer] [facility] Care Teams Promotional Marketing Analyst Relationship Specialty Start Date End Date Bucky Leal MD PCP - General Family Medicine 05/07/18
--- OUTSIDE RECORDS SUMMARY | 2024-08-07 08:21 | XMS_ITS | Clinical Summary ---
Author Organization [facility] Address [address] [facility] [address] [place] [address] Phone Care Team Providers Care Interactive Media Specialist Name Role Phone Bucky Leal MD Primary Care Provider [phone] [phone] Allergies Active Allergy Reactions Criticality Noted Date Comments Acetaminophen Unknown 05/14/2013 Antihistamines - Alkylamine Unknown 05/14/20 13 Jsg-Tna-Vc-Acetaminophen Unknown 05/14/2013 Ephedrine Analogues Unknown 05/14/2013 Opioids [...] Diagnosed Date Monoclonal gammopathy of unknown significance Encounters Date Type Department Care Team Description 05/29/2024 Telephone [facility] Hematology [facility] [facility] [address] [place] [address] Eladia Bello from Last 3 Months Immunizations Immunization Administration Dates Next Due Influenza, Quadrivalent, Rec ombinant, Egg Free, Preservative Free, Intramuscular 03/27/2019 Influenza, Trivalent, High D ose, Split, Preservative Free, Intramuscular 03/06/2018 Influenza, Unspecified 05/15/2017,2015,05/17/2015,05/18,05/19/2013 Pfizer SARS-CoV-2 Monovalent Vaccination (12+ Yrs) PURPLE 04/19/2021,08/16/2020,07/26/2020 ZOSTER LIVE 05/15/2017,05/16/2016 Surgical History Surgery Date Site/Laterality Comments COLONOSCOPY HERNIA REPAIR BLADDER STONE REMOVAL CHOLECYSTECTOMY Medical History Medical History Date Comments Diabetes mellitus (HCC) borderli ne MGUS (monoclonal gammopathy of unknown significa nce) Family History Medical History Relation Name Comments Brain cancer Brother Lung cancer Brother Relation Name Status Comments Brother Alive Social History Tobacco Use Types Packs/Day Years [...] on file Sexual Orientation Not on file Obstetrics History Last Filed Vital Signs Vital Sign Reading Time Taken Comments Blood Pressure 174/82 06/11/2023 10:01 AM INVERFORM MACHINE OPERATOR Pulse 76 06/11/2023 10:01 AM INVERFORM MACHINE OPERATOR Temperature 36.4 C (97.5 F) 06/11/2023 10:01 AM INVERFORM MACHINE OPERATOR Respiratory Rate 18 06/11/2023 10:01 AM INVERFORM MACHINE OPERATOR Oxygen Saturation 97% 06/11/2023 10:01 AM INVERFORM MACHINE OPERATOR Inhaled Oxygen Concentration - - Weight 98.4 kg (217 lb) 06/11/2023 10:01 AM INVERFORM MACHINE OPERATOR Height 175.3 cm (5' 9 ) 06/11/2023 10:01 AM INVERFORM MACHINE OPERATOR Body Mass Index 32.05 06/11/2023 10:01 AM INVERFORM MACHINE OPERATOR Plan of Treatment Health Maintenance Due Date Last Done Comments Depression Screening 1946 Fall Risk Assessment 1945 Hepatitis C Screening 1945 DTaP/Tdap/Td Vaccine (1 - Tdap) 1957 Hepatitis B Screening 1964 Pneumococcal vaccine 65+ (1 of 1 - PCV) 1996 Abdominal Aortic Aneurysm (A AA) Screen 2011 Well Visit 65+ 2011 Zoster Vaccine (2 of 3) 07/10/2017 05/15/2017, 05/16 Covid-19 Vaccine (4 - 2023-2 5 season) 2024 04/19/2021, 08/16/2020, 07/26/2020 Influenza Vaccine (#1) 2024 9, 03/06/2018, 05/15/2017, Additional history exists Insurance MEDICARE [facility] MEDICARE [facility] Care Teams Interactive Media Specialist Relationship Specialty Start Date End Date Bucky Leal MD PCP - General Family Medicine 05/07/18
[2024-08-07 13:41] LABS: Basophils Percent Auto 0.2 % (0.2-1.2); Eosinophils Absolute Auto 0.1 K/mm3 (0-0.3); Eosinophils Percent Auto 2.5 % (0-4.4); Hematocrit 37.5 % (42.0-52.0); Hemoglobin 12.1 g/dL (14.0-18.0); Immature Granulocyte Absolute 0.01 K/mm3 (0.00-0.031); Immature Granulocyte Percent A 0.2 % (0-0.5); Lymphocytes Absolute Auto 1.45 K/mm3 (0.9-3.2); Lymphocytes Percent Auto 33.3 % (18.3-44.2); Mean Corpuscular HGB Conc 32.3 g/dl (32-36); Mean Corpuscular Hemoglobin 32.7 pg (26-34); Mean Corpuscular Volume 101.4 fl (80-100); Mean Platelet Volume 11.4 fl (7.4-10.4); Monocytes Absolute Auto 0.4 K/mm3 (0.1-0.6); Monocytes Percent Auto 9.4 % (2.6-8.5); Neutrophils Absolute Auto 2.4 K/mm3 (1.3-6.7); Neutrophils Percent Auto 54.4 % (45.5-73.1); Platelet Count Result 121 k/mm3 (150-375); Red Cell Distribution Width 14.1 % (11.5-14.5); White Blood Count 4.4 K/mm3 (4.5-10.0)
[2024-08-07 14:05] LABS: Hemoglobin A1C 6.7 % (<5.7)
[2024-08-07 14:25] LABS: Alanine Aminotransferase 27 U/L (6-50); Albumin Level 4.4 g/dL (3.5-5.1); Alkaline Phosphatase 57 U/L (38-126); Anion Gap 11 mmol/L (4-12); Aspartate Amino Transferase 73 U/L (17-59); Bilirubin,Total 0.7 mg/dL (0.2-1.3); Blood Urea Nitrogen 32 mg/dL (9-20); Calcium 9.3 mg/dL (8.4-10.2); Carbon Dioxide 24 mmol/L (22-30); Chloride 107 mmol/L (98-107); Cholesterol 131 mg/dL (0-200); Estimated Glomerular Filt Rate 50; Glucose 139 mg/dL (65-110); HDL Direct 23 mg/dL; Potassium 4.6 mmol/L (3.4-5.0); Sodium 142 mmol/L (137-145); Triglycerides 383 mg/dL (<150)
[2024-08-07 15:02] LABS: LDL Cholesterol Direct < 30 mg/dL
[2024-08-07 15:15] LABS: Creatinine Urine 106.2 mg/dL
[2024-08-07 15:23] LABS: MALB Creatinine Ratio 50.3 mg/g (0-30); Microalbumin Urine Random 53.4 mg/L (0-16.7)
== END 2024-08-07 08:16 | disposition home or self-care (01) ==
LOC: ANHGOSHLAB 08:16
PROVIDERS: PCP Family Medicine; Visit Provider Family Medicine
DX: E11.65 Type 2 diabetes mellitus with hyperglycemia (principal); E66.3 Overweight; E78.2 Mixed hyperlipidemia; Z79.899 Other long term (current) drug therapy; Z79.4 Long term (current) use of insulin; I10 Essential (primary) hypertension; D50.9 Iron deficiency anemia, unspecified
CPT/HCPCS: 36415; 80053; 80061; 82043; 83036; 84443; 85025

== ENCOUNTER 2024-08-24 17:47 | Emergency (ER) | payer MEDICARE, SELFPAY ==
--- NOTE | 2024-08-24 17:49 | ED.URI ---
HPI - URI/Sore Throat General Chief Complaint: Upper Respiratory Infection Stated Complaint: Upper Respiratory Symptoms Time Seen by Provider: 08/24/24 17:48 Source: patient Mode of arrival: ambulatory Limitations: no limitations History of Present Illness HPI Narrative: Magdaleno is a 79-year-old male patient presenting to the clinic today with complaints of cough, nasal congestion, scratchy throat, feeling fevers, and body aches x2 days. He reports no chest pain or shortness of breath. Was around some friends for lunch that were having similar symptoms a few days ago. Related Data Home Medications ?Medication ?Instructions ?Recorded ?Confirmed ?Last Taken ?Type aspirin 81 mg tablet 81 mg PO DAILY 05/03/21 08/24/24 Unknown History finasteride 5 mg tablet 5 mg PO DAILY 05/03/21 08/24/24 Unknown History zlnhwrot-ml-cwrle 300 mcg-K 60 1 tablet PO DAILY 05/03/21 08/24/24 Unknown History mcg-lycop 600 mcg-lutein 300 mcg tablet (Centrum Silver Ultra Men's) antiarthritic combination no.2 900 900 mg PO DAILY 01/27/24 08/24/24 Unknown History mg tablet (glucosamine-chondroitin) turmeric 400 mg capsule 400 mg PO DAILY 01/27/24 08/24/24 Unknown History Allergies Allergy/AdvReac Type Severity Reaction Status Date / Time chlorpheniramine AdvReac Unknown HALLUCINATE Verified 08/24/24 17:59 D phenylephrine AdvReac Unknown HALLUCINATE Verified 08/24/24 17:59 D Review of Systems Review of Systems: Pertinent positives per HPI. Patient denies any fever, chills, rash, headache, visual changes, dizziness, cough, shortness of breath, chest pain, palpitations, nausea, vomiting, diarrhea, constipation, abdominal pain, or any urinary issues. [facility] Past Medical History Medical History HTN (hypertension) Agent orange exposure Gallstone Elevated liver enzymes Mixed hyperlipidemia Obesity (BMI 30.0-34.9) CKD (chronic kidney disease) stage 3, GFR 30-59 ml/min Type 2 diabetes mellitus with hyperglycemia Surgical History Surgical History Hx laparoscopic cholecystectomy History of inguinal hernia repair RIH repair History of bladder surgery Family History Family History Father Diabetes mellitus Hypertension Patient's father is Family history of cardiovascular disease Heart disease Mother Hypertension Patient's mother is , Onset Age: 76 Family history of cardiovascular disease Cancer of spine Grandparent Hypertension Social History Social History Smoking status: Former smoker Tobacco type: cigars Additional smoking assessment comments: STATES 1-2 CIGARS/DAILY/6YRS - QUIT 1974 Alcohol intake: never Substance use: never Substance use type: does not use Lack of Transportation: No Lack of Food: Never True Current Housing: I Have Housing Concerned About Future Housing: No Difficulty Paying Gas/Electric Bills: No Difficulty Paying for Meds: No Currently Unemployed: No Education: Trade/Vocational Certificate Difficulty w/ Childcare or Family Care: No Living arrangements: with family Occupation/Education: retired Gender identity (if verbalized by the patient): Male Spiritual care concerns: No Comments At the time of my signature, I reviewed and agree with the nursing past medical, surgical, social, and family history. There is no relevant family history pertinent to the patient complaint. Exam Narrative: General: Well-developed, well nourished, in no apparent distress Head: Normocephalic, atraumatic Eyes: Pupils equally round and reactive to light bilaterally, EOM intact, sclera and conjunctive clear, no discharge, lids normal Ears: TMs intact and clear, ear canals clear, no drainage, grossly hearing normal. Nose: Nares patent, no discharge, no inflammation, no sinus tenderness. Mouth: Oral pharynx without lesions or masses, good dentition, MMM. Neck: Supple, trachea midline, no enlargement of anterior or posterior cervical nodes, no thyroid masses or goiter palpable. Cardio: Regular rate and rhythm, s1 and s2 normal, no murmur appreciated. Resp: Clear to auscultation bilaterally, no rhonchi, rales, wheezing or rubs Course Course Emergency Course: Portions of this record may have been created with voice recognition software. Level of Care: Express Care Visit Vital Signs Vital signs: Vital Signs Temperature 36.9 C 08/24/24 17:55 Pulse Rate 79 08/24/24 17:55 Respiratory Rate 20 08/24/24 17:55 Blood Pressure 181/63 H 08/24/24 17:55 Pulse Oximetry 99 08/24/24 17:55 Oxygen Delivery Room Air 08/24/24 17:55 Temperature 36.9 C 08/24/24 17:55 Pulse Rate 79 08/24/24 17:55 Respiratory Rate 20 08/24/24 17:55 Blood Pressure 181/63 H 08/24/24 17:55 Pulse Oximetry 99 08/24/24 17:55 Oxygen Delivery Room Air 08/24/24 17:55 Vital signs reviewed MDM - URI/Sore Throat MDM Narrative Medical decision making narrative: At the time of visit patient is resting comfortably on the exam table. Patient appears to be nontoxic. Labs: Influenza and COVID testing was performed. Testing was negative. Plan: I suspect patient has URI with cough congestion. Supportive measures were discussed with the patient and they voiced understanding discharge instructions and agrees to treatment plan. Return precautions reviewed Differential Diagnosis Differential diagnosis: Likely upper respiratory infection, otitis media, sinusitis, viral infection, bronchitis, influenza, pharyngitis and other (COVID) Lab Data Labs: Lab Results 08/24/24 08/24/24 Range/Units 18:31 18:32 POC Influenza A Ag Negative (Negative) POC Influenza B Ag Negative (Negative) POC SARS CoV-2 Ag Negative (Negative) Discharge Plan Discharge Clinical Impression: Upper respiratory infection with cough and congestion Patient Disposition: Home, Self-Care Condition: Stable Instructions: Antibiotic Form, Cold Symptoms (ED) Additional Instructions: COVID and influenza testing was negative in the clinic today. Increase fluids and stay well hydrated Tylenol/motrin for pain/fever Flonase and OTC antihistamines as directed Vicks vapor rub to open sinuses Sinus rinses for congestion Cepacol spray, cough drops, throat lozenges, warm tea with honey/lemon, gargle salt water to soothe throat BRAT diet for diarrhea Clear liquids x 24 hours then advance as tolerated for nausea/vomiting Go to the ED if you develop a worsening in your condition- high fever not controlled by Tylenol or Motrin, dehydration, weakness, lethargy, shortness of breath, or chest pain. Follow up with your PCP in 3-5 days if symptoms persist. You have an elevated blood pressure in the clinic today and I recommend follow-up with primary care physician to have this reevaluated within the next week if symptoms persist. [place] [employer] guidelines state that normal blood pressure is 120/80 or less. Anything over 120/80 is considered elevated and should be monitored. You may need to decrease you salt intake and eat a heart healthy diet to help lower you blood pressure, other treatments would include decreasing stress, weight loss, stop caffeine, and quit smoking. Your primary care provider can determine whether you need to start antihypertensive medications. Untreated high blood pressure can cause dizziness, headaches, visual changes, blindness, kidney failure, stroke, heart attack, and male impotence. Patient Language: Bel[place]ian Prescriptions: No Action finasteride 5 mg tablet 5 mg PO DAILY aspirin 81 mg Tablet 81 mg PO DAILY Centrum Silver Ultra Men's 300-600-300 mcg Tablet 1 tablet PO DAILY turmeric 400 mg capsule 400 mg PO DAILY glucosamine-chondroitin 900 mg tablet 900 mg PO DAILY hydrochlorothiazide 12.5 mg tablet 12.5 mg PO DAILY Qty: 90 1RF fenofibrate 160 mg tablet 160 mg PO DAILY Qty: 90 1RF metformin 500 mg tablet See Rx Instructions .ROUTE .COMPLEX Qty: 180 1RF Dose Instruction: TAKE 1 TABLET TWICE A DAY Rx Instructions: TAKE 1 TABLET TWICE A DAY metoprolol succinate 50 mg tablet extended release 24 hr See Rx Instructions .ROUTE .COMPLEX Qty: 180 1RF Dose Instruction: TAKE 1 TABLET TWICE A DAY Rx Instructions: TAKE 1 TABLET TWICE A DAY lisinopril 40 mg tablet See Rx Instructions .ROUTE .COMPLEX Qty: 90 1RF Dose Instruction: TAKE 1 TABLET DAILY Rx Instructions: TAKE 1 TABLET DAILY rosuvastatin 10 mg tablet See Rx Instructions .ROUTE .COMPLEX Qty: 90 1RF Dose Instruction: TAKE 1 TABLET DAILY Rx Instructions: TAKE 1 TABLET DAILY Follow-up/Referrals: Bucky Leal MD [Primary Care Provider] - Time of Disposition: 18:27 Quality NIHSS Nursing Documentation ED NIHSS nursing documentation: reviewed/agree
[2024-08-24 17:55] VITALS: BP 181/63; PULSE 79; RESP 20; TEMP 36.9; O2SAT 99
[2024-08-24 18:33] LABS: EDINFLUASCREEN Negative (Negative); EDINFLUBSCREEN Negative (Negative)
[2024-08-24 18:33] LABS: EDCOVIDSCREEN Negative (Negative)
== END 2024-08-24 18:32 | disposition home or self-care (01) ==
PROVIDERS: Emergency Provider Nurse Practitioner Family; PCP Family Medicine
DX: J06.9 Acute upper respiratory infection, unspecified (principal); R05.9 Cough, unspecified; Z20.822 Contact with and (suspected) exposure to COVID-19; Z87.891 Personal history of nicotine dependence; I12.9 Hypertensive chronic kidney disease with stage 1 through stage 4 chronic kidney disease, or unspecified chronic kidney disease; E11.22 Type 2 diabetes mellitus with diabetic chronic kidney disease; N18.30 Chronic kidney disease, stage 3 unspecified; Z79.84 Long term (current) use of oral hypoglycemic drugs; E78.2 Mixed hyperlipidemia; E66.9 Obesity, unspecified; Z68.31 Body mass index [BMI] 31.0-31.9, adult; Z79.82 Long term (current) use of aspirin
CPT/HCPCS: 87426; 87804; 99212; G0463

== ENCOUNTER 2025-02-10 08:16 | Outpatient (CLI) | payer MEDICARE, SELFPAY ==
--- OUTSIDE RECORDS SUMMARY | 2025-02-10 08:40 | XMS_ITS | Clinical Summary ---
Author Organization [facility] Address [address] [place] [address] Phone Care Team Providers Care Underwear Finisher Name Role Phone Bucky Leal MD Primary Care Provider [phone] Allergies Active Allergy Reactions Criticality Noted Date Comments Acetaminophen Unknown 05/14/2013 Antihistamines - Alkylamine Unknown 05/14/20 13 Bgq-Och-Oc-Acetaminophen Unknown 05/14/2013 Ephedrine Analogues Unknown 05/14/2013 Opioids [...] Date Smoking Tobacco: Former Cigars Q uit: 1987 Smokeless Tobacco: Former Chew Alcohol Use Standard [...] Comments Blood Pressure 174/82 06/11/2023 10:01 AM LOCK ASSEMBLER Pulse 76 06/11/2023 10:01 AM LOCK ASSEMBLER Temperature 36.4 C (97.5 F) 06/11/2023 10:01 AM LOCK ASSEMBLER Respiratory Rate 18 06/11/2023 10:01 AM LOCK ASSEMBLER Oxygen Saturation 97% 06/11/2023 10:01 AM LOCK ASSEMBLER Inhaled Oxygen Concentration - - Weight 98.4 kg (217 lb) 06/11/2023 10:01 AM LOCK ASSEMBLER Height 175.3 cm (5' 9) 06/11/2023 10:01 AM LOCK ASSEMBLER Body Mass Index 32.05 06/11/2023 10:01 AM LOCK ASSEMBLER Plan of Treatment Health Maintenance Due Date Last Done Comments Depression Screening 1945 Fall Risk Assessment 1945 Hepatitis C Screening 1945 DTaP/Tdap/Td Vaccine (1 - Tdap) 1957 Hepatitis B Screening 1964 Pneumococcal vaccine 65+ (1 of 1 - PCV) 1996 Abdominal Aortic Aneurysm (A AA) Screen 2011 Well Visit 65+ 2011 Zoster Vaccine (2 of 3) 07/10/2017 05/15/2017, 05/16 Covid-19 Vaccine (4 - 2024-2 6 season) 2025 04/19/2021, 08/16/2020, 07/26/2020 Influenza Vaccine (#1) 2025 9, 03/06/2018, 05/15/2017, Additional history exists Insurance MEDICARE [facility]LY [facility] MEDICARE [facility] Care Teams Underwear Finisher Relationship Specialty Start Date End Date Bucky Leal MD PCP - General Family Medicine 05/07/18
[2025-02-10 12:50] LABS: Hematocrit 36.6 % (42.0-52.0); Hemoglobin 11.9 g/dL (14.0-18.0); Immature Granulocyte Percent A 0.3 % (0-0.5); Lymphocytes Absolute Auto 1.25 K/mm3 (0.9-3.2); Mean Corpuscular HGB Conc 32.5 g/dl (32-36); Mean Corpuscular Hemoglobin 32.2 pg (26-34); Mean Corpuscular Volume 99.2 fl (80-100); Nucleated Red Blood Cells Absolute Auto 0.000 K/mm3 (0.0-0.012); Nucleated Red Blood Cells Perc 0.0 % (0.0-0.2); Platelet Count Result 109 k/mm3 (150-375); Red Blood Count 3.69 M/mm3 (4.6-6.20); White Blood Count 3.9 K/mm3 (4.5-10.0)
[2025-02-10 13:05] LABS: Alanine Aminotransferase 22 U/L (6-50); Albumin Level 4.4 g/dL (3.5-5.1); Alkaline Phosphatase 57 U/L (38-126); Anion Gap 8 mmol/L (4-12); Aspartate Amino Transferase 42 U/L (17-59); Bilirubin,Total 0.6 mg/dL (0.2-1.3); Blood Urea Nitrogen 27 mg/dL (9-20); Calcium 9.1 mg/dL (8.4-10.2); Carbon Dioxide 23 mmol/L (22-30); Chloride 107 mmol/L (98-107); Cholesterol 129 mg/dL (0-200); Estimated Glomerular Filt Rate 44; Glucose 138 mg/dL (65-110); HDL Direct 25 mg/dL; Potassium 4.6 mmol/L (3.4-5.0); Sodium 138 mmol/L (137-145); Total Protein 8.4 g/dL (6.3-8.2); Triglycerides 361 mg/dL (<150)
[2025-02-10 13:12] LABS: MALB Creatinine Ratio 55.9 mg/g (0-30)
[2025-02-10 13:40] LABS: Thyroid Stimulating Hormone 2.990 uIU/mL (0.465-4.680)
[2025-02-10 16:01] LABS: Hemoglobin A1C 6.8 % (<5.7)
== END 2025-02-10 08:17 | disposition home or self-care (01) ==
PROVIDERS: PCP Family Medicine; Visit Provider Family Medicine
DX: E11.65 Type 2 diabetes mellitus with hyperglycemia (principal); E66.3 Overweight; E78.2 Mixed hyperlipidemia; Z79.899 Other long term (current) drug therapy; E11.9 Type 2 diabetes mellitus without complications; Z79.4 Long term (current) use of insulin; I10 Essential (primary) hypertension; D50.9 Iron deficiency anemia, unspecified
CPT/HCPCS: 36415; 80053; 80061; 82043; 83036; 84443; 85025